=== PATIENT | male | born 1950 | race Caucasian/White ===

== ENCOUNTER 2023-05-09 06:00 | Outpatient (RCR) | payer MEDICARE, SELFPAY | END 2023-05-17 23:59 | disposition home or self-care (01) | LOC: GPT 06:00 | PROVIDERS: Visit Provider Family Medicine | DX: R26.81 Unsteadiness on feet (principal); Z86.73 Personal history of transient ischemic attack (TIA), and cerebral infarction without residual deficits | CPT/HCPCS: 97110; 97112; 97161; 97530 ==

== ENCOUNTER 2023-05-18 06:00 | Outpatient (RCR) | payer MEDICARE, SELFPAY | END 2023-06-16 23:59 | disposition home or self-care (01) | LOC: GPT 06:00 | PROVIDERS: Visit Provider Family Medicine | DX: R26.81 Unsteadiness on feet (principal); Z86.73 Personal history of transient ischemic attack (TIA), and cerebral infarction without residual deficits | CPT/HCPCS: 97110; 97112; 97530 ==

== ENCOUNTER 2023-06-17 06:00 | Outpatient (RCR) | payer MEDICARE, SELFPAY | END 2023-07-17 23:59 | disposition home or self-care (01) | LOC: GPT 06:00 | PROVIDERS: Visit Provider Family Medicine | DX: R26.81 Unsteadiness on feet (principal); Z86.73 Personal history of transient ischemic attack (TIA), and cerebral infarction without residual deficits | CPT/HCPCS: 97110; 97112; 97164; 97530 ==

== ENCOUNTER 2023-07-18 06:00 | Outpatient (RCR) | payer MEDICARE, SELFPAY | END 2023-08-16 23:59 | disposition home or self-care (01) | LOC: GPT 06:00 | PROVIDERS: Visit Provider Family Medicine | DX: R26.81 Unsteadiness on feet (principal); Z86.73 Personal history of transient ischemic attack (TIA), and cerebral infarction without residual deficits | CPT/HCPCS: 97110; 97112; 97164; 97530 ==

== ENCOUNTER 2023-08-17 06:00 | Outpatient (RCR) | payer MEDICARE, SELFPAY | END 2023-09-16 23:59 | disposition home or self-care (01) | LOC: GPT 06:00 | PROVIDERS: Visit Provider Family Medicine | DX: R26.81 Unsteadiness on feet (principal); Z86.73 Personal history of transient ischemic attack (TIA), and cerebral infarction without residual deficits | CPT/HCPCS: 97110; 97112; 97164; 97530 ==

== ENCOUNTER 2023-09-17 06:00 | Outpatient (RCR) | payer MEDICARE, SELFPAY | END 2023-10-17 23:59 | disposition home or self-care (01) | LOC: GPT 06:00 | PROVIDERS: Visit Provider Family Medicine | DX: R26.81 Unsteadiness on feet (principal); Z86.73 Personal history of transient ischemic attack (TIA), and cerebral infarction without residual deficits | CPT/HCPCS: 97110; 97112 ==